=== PATIENT | male | born 1980 | race Caucasian/White ===

== ENCOUNTER 2019-11-23 23:41 | Emergency (ER) | payer SELFPAY ==
[~2019-11-23] VITALS: Ht 175.3 cm; Wt 107.5 kg
[2019-11-23 23:44] VITALS: BP 168/136; Ht 175.3 cm; Wt 107.5 kg
== END 2019-11-24 01:44 | disposition home or self-care (01) ==
LOC: ED 23:41
DX: R10.11 Right upper quadrant pain (principal)
CPT/HCPCS: J1885